=== PATIENT | male | born 1990 | race Caucasian/White ===

== ENCOUNTER 2023-05-17 20:26 | Inpatient (IN) | payer SELFPAY ==
[~2023-05-17] VITALS: Ht 185.4 cm; Wt 70.0 kg
[2023-05-17 20:32] VITALS: BP 164/104
[2023-05-17 20:41] LABS: BASO % 0.8 % (0.0-1.0); EOS % 0.2 % (1.0-4.0); HEMATOCRIT 44.1 % (42.0-52.0); LYMPH # 1.7 10*3/uL (1.3-4.4); LYMPH % 34.3 % (27.0-41.0); MEAN CELL VOLUME 93.8 fl (80.0-94.0); MEAN CORPUSCULAR HGB 33.2 pg (27.0-31.0); MEAN CORPUSCULAR HGB CONC 35.4 g/dl (33.0-37.0); MEAN PLATELET VOLUME 9.5 fl (9.6-12.3); MONO # 0.3 10*3/uL (0.1-1.0); MONO % 6.4 % (3.0-9.0); NEUT # 2.9 10*3/uL (2.3-7.9); NEUT % 58.1 % (47.0-73.0); PLATELET COUNT AUTOMATED 114 10*3/uL (130-400); RED CELL DISTRI WIDTH 12.4 % (0-14.5)
[2023-05-17 21:10] LABS: ALKALINE PHOSPHATASE 88 U/L (46-116); BUN 6 mg/dl (9-23); CHLORIDE 100 mmol/L (98-107); POTASSIUM 3.9 mmol/L (3.4-5.1); SGPT/ALT 245 U/L (10-49); TOTAL PROTEIN 7.7 gm/dL (6.0-8.0)
[2023-05-17 21:21] LABS: ETHYL ALCOHOL 482.3 mg/dl (<3)
[2023-05-18] VITALS (7 sets, daily range): BP systolic 130–140; BP diastolic 76–89
[2023-05-19] VITALS: BP 144/85
[2023-05-19 04:00] VITALS: BP 139/82
[2023-05-19 06:33] LABS: INTERNATIONAL NORM RATIO 1.2 (2.0-3.5)
[2023-05-19 06:43] LABS: BASO % 0.2 % (0.0-1.0); EOS % 0.6 % (1.0-4.0); HEMATOCRIT 37.1 % (42.0-52.0); MEAN CORPUSCULAR HGB 33.5 pg (27.0-31.0); MEAN CORPUSCULAR HGB CONC 34.2 g/dl (33.0-37.0); MEAN PLATELET VOLUME 10.8 fl (9.6-12.3); MONO # 0.5 10*3/uL (0.1-1.0); MONO % 10.7 % (3.0-9.0); NEUT # 3.1 10*3/uL (2.3-7.9); NEUT % 67.1 % (47.0-73.0); RED BLOOD COUNT 3.79 10*6/uL (4.50-5.90); RED CELL DISTRI WIDTH 12.4 % (0-14.5); WHITE BLOOD COUNT 4.7 10*3/uL (4.8-10.8)
[2023-05-19 06:44] LABS: MEAN CELL VOLUME 97.9 fl (80.0-94.0); PLATELET COUNT AUTOMATED 66 10*3/uL (130-400)
[2023-05-19 07:21] LABS: ALKALINE PHOSPHATASE 71 U/L (46-116); BUN 5 mg/dl (9-23); CHLORIDE 97 mmol/L (98-107); POTASSIUM 3.6 mmol/L (3.4-5.1); SGPT/ALT 184 U/L (10-49); TOTAL PROTEIN 6.6 gm/dL (6.0-8.0)
[2023-05-19 08:00] VITALS: BP 136/86
[2023-05-19 12:00] VITALS: BP 139/85
[2023-05-19 16:00] VITALS: BP 130/88
[2023-05-19 20:00] VITALS: BP 138/90
[2023-05-20] VITALS (9 sets, daily range): BP systolic 103–157; BP diastolic 72–102
[2023-05-20 05:05] LABS: ALKALINE PHOSPHATASE 82 U/L (46-116); CHLORIDE 100 mmol/L (98-107); POTASSIUM 3.7 mmol/L (3.4-5.1); SGPT/ALT 220 U/L (10-49); TOTAL PROTEIN 7.2 gm/dL (6.0-8.0)
[2023-05-20 05:10] LABS: BUN < 5 mg/dl (9-23)
[2023-05-20 06:34] LABS: BASO % 0.4 % (0.0-1.0); EOS # 0.2 10*3/uL (0.0-0.4); EOS % 3.4 % (1.0-4.0); HEMATOCRIT 39.3 % (42.0-52.0); LYMPH % 19.5 % (27.0-41.0); MEAN CELL VOLUME 95.9 fl (80.0-94.0); MEAN CORPUSCULAR HGB 33.9 pg (27.0-31.0); MEAN CORPUSCULAR HGB CONC 35.4 g/dl (33.0-37.0); MEAN PLATELET VOLUME 11.5 fl (9.6-12.3); MONO # 0.4 10*3/uL (0.1-1.0); MONO % 7.8 % (3.0-9.0); NEUT # 3.4 10*3/uL (2.3-7.9); NEUT % 68.7 % (47.0-73.0); PLATELET COUNT AUTOMATED 64 10*3/uL (130-400); RED CELL DISTRI WIDTH 12.2 % (0-14.5)
[2023-05-20 12:51] LABS: INTERNATIONAL NORM RATIO 1.3 (2.0-3.5)
[2023-05-21] VITALS (11 sets, daily range): BP systolic 93–147; BP diastolic 43–88
[2023-05-21 06:11] LABS: HEMATOCRIT 41.2 % (42.0-52.0); MEAN CELL VOLUME 98.1 fl (80.0-94.0); MEAN CORPUSCULAR HGB 33.8 pg (27.0-31.0); MEAN CORPUSCULAR HGB CONC 34.5 g/dl (33.0-37.0); MEAN PLATELET VOLUME 11.6 fl (9.6-12.3); PLATELET COUNT AUTOMATED 81 10*3/uL (130-400); RED CELL DISTRI WIDTH 12.2 % (0-14.5); WHITE BLOOD COUNT 5.4 10*3/uL (4.8-10.8)
[2023-05-21 06:16] LABS: INTERNATIONAL NORM RATIO 1.3 (2.0-3.5)
[2023-05-21 06:30] LABS: ALKALINE PHOSPHATASE 83 U/L (46-116); BUN 6 mg/dl (9-23); CHLORIDE 100 mmol/L (98-107); POTASSIUM 3.8 mmol/L (3.4-5.1); SGPT/ALT 185 U/L (10-49); TOTAL PROTEIN 7.1 gm/dL (6.0-8.0)
[2023-05-21 06:57] LABS: MANUAL DIFF REFLEX YES
[2023-05-21 07:02] LABS: BASOPHILS 1 % (0-1); TOTAL CELLS COUNTED 100 #CELLS
[2023-05-21 07:09] LABS: PLATELET SUFFICIENCY LOW (NORMAL)
[2023-05-21 12:46] LABS: BILIRUBIN Negative (Negative); BLOOD 3+ (Negative); CLARITY Clear (Clear); COLOR Dark Yellow (Yellow); GLUCOSE Negative (Negative); KETONE Negative (Negative); LEUKO ESTERASE Trace (Negative); NITRITE Negative (Negative)
[2023-05-21 13:15] LABS: BACTERIA 1+; RBC TNTC rbc/hpf (0-2)
[2023-05-21 13:16] LABS: EPITHELIAL CELLS 0-2
[2023-05-22] VITALS (8 sets, daily range): BP systolic 90–145; BP diastolic 53–93
[2023-05-22 06:43] LABS: BASO % 0.6 % (0.0-1.0); EOS # 0.2 10*3/uL (0.0-0.4); EOS % 3.4 % (1.0-4.0); HEMATOCRIT 39.8 % (42.0-52.0); LYMPH # 1.5 10*3/uL (1.3-4.4); LYMPH % 32.2 % (27.0-41.0); MEAN CORPUSCULAR HGB 33.9 pg (27.0-31.0); MEAN CORPUSCULAR HGB CONC 33.9 g/dl (33.0-37.0); MEAN PLATELET VOLUME 10.6 fl (9.6-12.3); MONO # 0.5 10*3/uL (0.1-1.0); MONO % 10.9 % (3.0-9.0); NEUT # 2.5 10*3/uL (2.3-7.9); NEUT % 52.7 % (47.0-73.0); RED BLOOD COUNT 3.98 10*6/uL (4.50-5.90); RED CELL DISTRI WIDTH 12.3 % (0-14.5); WHITE BLOOD COUNT 4.7 10*3/uL (4.8-10.8)
[2023-05-22 07:05] LABS: ALKALINE PHOSPHATASE 74 U/L (46-116); BUN 8 mg/dl (9-23); CHLORIDE 105 mmol/L (98-107); SGPT/ALT 234 U/L (10-49); TOTAL PROTEIN 7.2 gm/dL (6.0-8.0)
[2023-05-22 07:20] LABS: POTASSIUM 4.9 mmol/L (3.4-5.1)
[2023-05-22 07:26] LABS: PLATELET COUNT AUTOMATED 109 10*3/uL (130-400)
[2023-05-23] VITALS: BP 145/81
[2023-05-23 04:00] VITALS: BP 133/86
[2023-05-23 06:38] LABS: BASO % 0.4 % (0.0-1.0); EOS # 0.1 10*3/uL (0.0-0.4); EOS % 2.3 % (1.0-4.0); HEMATOCRIT 38.6 % (42.0-52.0); LYMPH # 1.1 10*3/uL (1.3-4.4); LYMPH % 20.3 % (27.0-41.0); MEAN CORPUSCULAR HGB 33.9 pg (27.0-31.0); MEAN CORPUSCULAR HGB CONC 33.9 g/dl (33.0-37.0); MEAN PLATELET VOLUME 10.4 fl (9.6-12.3); MONO # 0.9 10*3/uL (0.1-1.0); NEUT # 3.2 10*3/uL (2.3-7.9); NEUT % 59.6 % (47.0-73.0); PLATELET COUNT AUTOMATED 135 10*3/uL (130-400); RED BLOOD COUNT 3.86 10*6/uL (4.50-5.90); RED CELL DISTRI WIDTH 12.5 % (0-14.5); WHITE BLOOD COUNT 5.3 10*3/uL (4.8-10.8)
[2023-05-23 06:42] LABS: INTERNATIONAL NORM RATIO 1.2 (2.0-3.5)
[2023-05-23 07:14] LABS: ALKALINE PHOSPHATASE 74 U/L (46-116); BUN 9 mg/dl (9-23); CHLORIDE 102 mmol/L (98-107); SGPT/ALT 307 U/L (10-49); TOTAL PROTEIN 7.4 gm/dL (6.0-8.0)
[2023-05-23 07:16] LABS: POTASSIUM 3.8 mmol/L (3.4-5.1)
[2023-05-23 08:00] VITALS: BP 123/81
[2023-05-23] MEDS ORDERED: ATARAX,VISTARIL50 MG PO (10:21)
[2023-05-23] MEDS ORDERED: CLONAZEPAM1 MG PO (10:21)
== END 2023-05-23 11:30 | disposition home or self-care (01) | DRG 392 ==
LOC: ED 20:26 → EDHOLD 05-18 10:41 → ICCU 05-18 10:41 → EDHOLD 05-18 16:17 → ICCU 05-18 19:14
PROVIDERS: Family Medicine; Internal Medicine; ADMIT Internal Medicine; ATTEND Internal Medicine
DX: R11.2 Nausea with vomiting, unspecified (principal); F10.239 Alcohol dependence with withdrawal, unspecified; D69.6 Thrombocytopenia, unspecified; J45.20 Mild intermittent asthma, uncomplicated; F12.90 Cannabis use, unspecified, uncomplicated; F10.20 Alcohol dependence, uncomplicated; R74.01 Elevation of levels of liver transaminase levels; R73.9 Hyperglycemia, unspecified; F17.290 Nicotine dependence, other tobacco product, uncomplicated; R00.0 Tachycardia, unspecified; E80.6 Other disorders of bilirubin metabolism; E83.39 Other disorders of phosphorus metabolism; Y90.9 Presence of alcohol in blood, level not specified; K70.9 Alcoholic liver disease, unspecified; G25.2 Other specified forms of tremor; F41.1 Generalized anxiety disorder; F31.9 Bipolar disorder, unspecified; Z82.49 Family history of ischemic heart disease and other diseases of the circulatory system; Z82.3 Family history of stroke; Z80.8 Family history of malignant neoplasm of other organs or systems; Z81.1 Family history of alcohol abuse and dependence